=== PATIENT | male | born 1950 | race Caucasian/White ===

== ENCOUNTER 2019-08-14 15:37 | Emergency (ER) | payer MEDICARE ==
[2019-08-14] MEDS ORDERED: Bacitracin Oint 1 GM U/D Packet TOP ONE (16:03)
[2019-08-14] MEDS ORDERED: Lidocaine 1% 20 ML MDV INJECT ONE (16:03)
[2019-08-14] MEDS ORDERED: Sodium Chloride 0.9% 1,000 ML IV SCH (17:15)
[2019-08-14 17:17] VITALS: BP 98/56; PULSE 58
--- NOTE | 2019-08-14 18:16 | EDM.PDOC ---
ED HPI GENERAL MEDICAL PROBLEM - General Chief Complaint: Laceration Stated Complaint: LACERATION TO LEFT HAND Time Seen by Provider: 08/14/19 18:17 Source of Information: Reports: Patient History Limitations: Reports: No Limitations - History of Present Illness INITIAL COMMENTS - FREE TEXT/NARRATIVE: pt was working in the shop nd a sharp tool went out of control and he ended up injurying his left hand. He had very ragged cuts. He had lik puncture type wounds. the most proximal was 1.25 inch. the others were 1/4 inch in length. Onset: Today, Sudden Duration: Hour(s): Location: Reports: Upper Extremity, Left Associated Symptoms: Reports: No Other Symptoms Left Hand Pain Score (Numeric/FACES): 4 - Related Data Allergies Allergy/AdvReac Type Severity Reaction Status Date / Time No Known Allergies Allergy Verified 08/14/19 16:29 Home Meds: Home Meds Atenolol 12.5 mg PO BID 04/30/15 [History] Gluc/Miller-Msm#2/C/D3/Sang/Born [Qtnbknfzxe-Pgaszgrostj-MHF] 1 tab PO BID [History] Insulin Aspart [NovoLOG] See Protocol SQ ASDIRECTED 04/30/15 [History] Insulin Glarg,Human.Rec.Analog [Lantus] 20 - 25 units SQ BEDTIME 04/30/15 [ History] Multivit-Min/FA/Lycopene/Lut [Centrum Silver Tablet] 1 tab PO DAILY 04/30/15 [ History] Aspirin [Halfprin] 1 tab PO DAILY 08/14/19 [History] Clopidogrel [Plavix] 1 tab PO DAILY 08/14/19 [History] Lisinopril 1 tab PO DAILY 08/14/19 [History] atorvaSTATin [Lipitor] 1 tab PO DAILY 08/14/19 [History] Past Medical History HEENT History: Reports: Cataract, Impaired Vision Cardiovascular History: Reports: CAD, High Cholesterol, Hypertension, CT Other Genitourinary History: prostate cancer Endocrine/Metabolic History: Reports: Diabetes, Type II - Past Surgical History HEENT Surgical History: Reports: Cataract Surgery Cardiovascular Surgical History: Reports: Coronary Artery Stent Other Male Surgeries/Procedures: prostate surgery Social & Family History - Tobacco Use Smoking Status *Q: Never Smoker - Alcohol Use Days Per Week of Alcohol Use: 7 Number of Drinks Per Day: 1 Total Drinks Per Week: 7 - Recreational Drug Use Recreational Drug Use: No - Living Situation & Occupation Living situation: Reports: , with Spouse Occupation: Retired ED ROS GENERAL - Review of Systems Review Of Systems: See Below Constitutional: Reports: No Symptoms HEENT: Reports: No Symptoms Respiratory: Reports: No Symptoms Cardiovascular: Reports: No Symptoms Endocrine: Reports: No Symptoms GI/Abdominal: Reports: No Symptoms : Reports: No Symptoms Musculoskeletal: Reports: Other (laceration in the palm of the left hand. ) ED EXAM, SKIN/RASH Exam: See Below Text/Narrative:: pt was working in his shop and he had a sharp tool get out of control and he had a puncture wound in 3 places in the hand. There was a joanne most proximal which was 1.25 in length. the other 2 were 1/4 inch in length. These were ragged and deep to the subq. Exam Limited By: No Limitations General Appearance: Alert, Anxious Neurological: Other (lacerations in the palm of the left hand. ) Course - Vital Signs Last Recorded V/S: Last Vital Signs Temp 36.9 C 08/14/19 16:33 Pulse 58 L 08/14/19 17:16 Resp 16 08/14/19 16:50 BP 98/56 L 08/14/19 17:16 Pulse Ox 97 08/14/19 16:50 - Orders/Labs/Meds Orders: Active Orders 24 hr Category Date Time Status Sodium Chloride 0.9% [Normal Saline] 1,000 ml Med 08/14/19 17:15 Active IV ASDIRECTED Medication Orders Sodium Chloride (Normal Saline) 1,000 mls @ 999 mls/hr IV ASDIRECTED JANICE Last Admin: 08/14/19 17:16 Dose: 999 mls/hr Meds: Medications Generic Name Dose Route Start Last Admin Trade Name Freq PRN Reason Stop Dose Admin Sodium Chloride 1,000 mls @ 999 mls/hr 08/14/19 17:15 08/14/19 17:16 Normal Saline IV 999 mls/hr ASDIRECTED JANICE Administration Discontinued Medications Generic Name Dose Route Start Last Admin Trade Name Freq PRN Reason Stop Dose Admin Bacitracin 1 dose 08/14/19 16:03 08/14/19 17:15 Bacitracin Oint 1 Gm TOP 08/14/19 16:04 1 dose ONETIME ONE Administration Lidocaine HCl 20 ml 08/14/19 16:03 08/14/19 17:15 Xylocaine 1% INJECT 08/14/19 16:04 20 ml ONETIME ONE Administration - Re-Assessments/Exams Free Text/Narrative Re-Assessment/Exam: 08/14/19 18:28 pt had the hand soked. The wounds were infiltrated with lidocaine. The wound were ragged. The most proximal one was 1.25 inches in lenth. The other 2 were 1/ 4 inch in length. These were scrubbed well and infiltrated with lidocaine. These were loosely closed with 5-0 chromic and 5-0 prolenme. He was warned that infection was a real possiblity with these typr of woounds. Departure - Departure Time of Disposition: 18:12 Disposition: Home, Self-Care 01 Condition: Fair Clinical Impression: Laceration - Discharge Information Referrals: PCP,None [Primary Care Provider] - Forms: ED Department Discharge Care Plan Goals: keep dry, elevat. Leave the pressure dressing in place until Monday Am. No fuirther ointments, dress with a adaptic, 4x4s and laverne, sr in 7-8 days, rtc if redness or drainage, keflex 500mg tid. tylenol 3 1 tab q6h prn for pain #10 - My Orders Last 24 Hours: My Active Orders 08/14/19 17:15 Sodium Chloride 0.9% [Normal Saline] 1,000 ml IV ASDIRECTED - Assessment/Plan Last 24 Hours: My Active Orders 08/14/19 17:15 Sodium Chloride 0.9% [Normal Saline] 1,000 ml IV ASDIRECTED
== END 2019-08-14 19:20 | disposition home or self-care (01) ==
LOC: JP.ED 15:37
DX: S61.412A Laceration without foreign body of left hand, initial encounter (principal); I25.2 Old myocardial infarction; I10 Essential (primary) hypertension; E78.00 Pure hypercholesterolemia, unspecified; E11.9 Type 2 diabetes mellitus without complications; Z79.4 Long term (current) use of insulin; Z79.82 Long term (current) use of aspirin; Z79.899 Other long term (current) drug therapy; W26.8XXA Contact with other sharp object(s), not elsewhere classified, initial encounter
CPT/HCPCS: 12001; 12002; 96360; 99282; 99283; J2001; J7030